=== PATIENT | male | born 2005 | race Caucasian/White ===

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

== ENCOUNTER 2024-02-14 14:47 | Emergency (ER) | payer MEDICAID, SELFPAY ==
--- NOTE | ~2024-02-14 | CT_ITS ---
EXAMINATION: CT ABDOMEN AND PELVIS WITHOUT CONTRAST CLINICAL INFORMATION: Pain. Vomiting. COMPARISON: 07/13/2023 TECHNIQUE: Multidetector volumetric imaging was performed from the superior aspect of the liver through the pubic symphysis. Sagittal and coronal reformatted images were obtained on the technologist's workstation. This CT examination was performed using dose optimization techniques as appropriate, variously including the following: *Automated exposure control *Adjustment of mA and/or kV according to patient size (this includes techniques or standardized protocols for targeted exams where dose is matched to indication/reason for exam; i.e. extremities or head) *Use of iterative reconstruction technique DLP: 582 mGy-cm FINDINGS: LUNG BASES: The visualized lung bases are unremarkable. LIVER, GALLBLADDER, AND BILIARY TREE: The liver is normal in size, shape, and attenuation. No focal hepatic lesion or biliary ductal dilatation is present. The gallbladder is unremarkable with no evidence of radiopaque gallstones, gallbladder wall thickening, or obvious pericholecystic inflammatory changes. PANCREAS: Unremarkable. SPLEEN: Unremarkable. ADRENAL GLANDS: Unremarkable. KIDNEYS AND URETERS: The kidneys are normal in size, shape, and attenuation. No hydronephrosis, hydroureter, or calculi seen. No perinephric stranding. BLADDER: Unremarkable. GASTROINTESTINAL TRACT: The small and large bowel are unremarkable. The appendix is unremarkable. ABDOMINAL WALL: No significant hernia is appreciated. LYMPH NODES: Normal. VASCULAR: Unremarkable. PELVIC VISCERA: Unremarkable. OSSEOUS STRUCTURES: Unremarkable. CT/CT abdomen pelvis wo IV con IMPRESSION: No significant abnormality. Fleischner guidelines were followed.
[2024-02-14 15:06] VITALS: BP 119/80; PULSE 83; RESP 16; TEMP 36.8; O2SAT 99; BMI 25.1
--- NOTE | 2024-02-14 15:21 | ED_ITS ---
HPI - General Adult General Chief complaint: Nausea/Vomiting/Diarrhea Stated complaint: Not Feeling Well Time Seen by Provider: 02/14/24 19:04 Source: patient and family Mode of arrival: ambulatory Limitations: no limitations History of Present Illness HPI narrative: 19-year-old male came in for evaluation nausea, vomiting, chills x2 days. Patient feels sore throat only after vomiting, no sick contacts, no recent travel , no recent prolonged immobilization. Patient is complaining of epigastric / mid pain pain is only after vomiting pain is not constant is about 5/10 when it presents. No history of intra-abdominal surgery. Related Data Previous Rx's ?Medication ?Instructions ?Recorded lorazepam 1 mg tablet (Ativan) 1 mg PO DAILY PRN anxiety, 10/03/20 vomiting #7 tabs ondansetron 4 mg disintegrating 4 mg PO Q6-8H PRN Vomiting #20 tabs 10/03/20 tablet ondansetron HCl 4 mg tablet 4 mg PO Q8H PRN nausea and 03/05/21 (Zofran) vomiting #10 tabs meclizine 25 mg tablet 25 mg PO TID PRN dizziness #20 tabs 09/30/22 ondansetron 4 mg disintegrating 4 mg PO Q6H PRN nausea and 09/30/22 tablet vomiting #15 tabs ondansetron 4 mg disintegrating 4 mg PO Q8H PRN nausea and 07/13/23 tablet vomiting #7 tabs omeprazole magnesium 20 mg 20 mg PO DAILY 30 days #30 tabs 07/15/23 tablet,delayed release (Prilosec OTC) promethazine 25 mg tablet 25 mg PO Q6H PRN nausea and 07/15/23 vomiting #14 tabs ondansetron 4 mg disintegrating 4 mg PO Q8H PRN nausea and 11/09/23 tablet vomiting 4 days #10 tabs azithromycin 250 mg tablet See Rx Instructions PO .COMPLEX #6 02/14/24 (Zithromax Z-Angel) tabs metoclopramide HCl 10 mg tablet 10 mg PO Q6H PRN nausea and 02/15/24 (Reglan) vomiting #20 tabs Allergies Allergy/AdvReac Type Severity Reaction Status Date / Time amoxicillin [AMOXICILLIN] Allergy Unknown RASH Verified 02/14/24 15:10 Review of Systems 2 Review of Systems: all other systems are reviewed and are negative Constitutional: Reports as per HPI and Reports no additional constitutional complaints Eyes: Reports as per HPI and Reports no additional eye complaints Reports system reviewed and no additional complaints, except as documented Cardiovascular: Reports as per HPI and Reports no additional cardiovascular complaints Respiratory: Reports as per HPI and Reports no additional respiratory complaints Gastrointestinal: Reports as per HPI and Reports no additional gastrointestinal complaints Genitourinary: Reports no additional female genitourinary complaints Musculoskeletal: Reports no additional musculoskeletal complaints Skin/Breast: Reports system reviewed and no additional complaints, except as docu Psychiatric: Reports no additional psychiatric complaints Endocrine: Reports no additional endocrine complaints Hematologic/Lymphatic: Reports no additional hematologic/lymphatic complaints Allergic/Immunologic: Reports no additional allergic/immunologic complaints Reports system reviewed and no additional complaints, except as documented and Reports Abnormal speech present [facility] Past Medical History Medical History No known health problems Social History Social History Alcohol intake: never Smoked in Last 30 Days: No Use of substances other than those prescribed or required for medical reasons: No Advance Directives: No Advance Directives Information Provided: No Do you have a plan to hurt others: No Plan Physical Exam ED Vital Signs: Vital Signs - 24 hr 02/14/24 15:06 02/14/24 19:53 02/14/24 21:01 Temperature 98.3 F 98.4 F 98.7 F Pulse Rate 83 82 Respiratory Rate 16 16 Blood Pressure 119/80 115/78 Pulse Oximetry 99 100 Oxygen Delivery Method Room Air Room Air 02/14/24 21:52 02/15/24 00:49 02/15/24 00:50 Temperature 98.3 F 98.6 F 98.6 F Pulse Rate 86 78 78 Respiratory Rate 19 16 16 Blood Pressure 110/65 120/75 120/75 Pulse Oximetry 100 100 100 Oxygen Delivery Method Room Air Room Air Room Air BMI result Body Mass Index 25.1 Vital signs have been reviewed and appear to be correct. Blood pressure elevated. Heart rate normal. Respiratory rate normal. Temperature normal. Oxygen saturation normal. Appearance: Alert. Oriented X3. No acute distress. Head: Normal external exam. Normocephalic. Atraumatic. No Chaparro signs noted. No raccoon eyes noted Eyes: PERRLA. EOMI. Conjunctiva and sclera normal. Eyelids normal. ENT: TM's Normal. Pharynx normal. Uvula midline. Moist mucous membranes. No trismus noted. No drooling noted. No muffled voice noted. Neck: Normal inspection. Neck supple. FROM. No adenopathy. Thyroid Normal. No meningeal signs. No neck mass noted. CVS: Normal heart rate and rhythm. Heart sound normal. No murmurs noted. Pulses normal throughout. Respiratory: No respiratory distress. Painless inspiration. Breath sounds normal. No wheezes/rales/rhonchi noted. Chest nontender. No accessory muscle usage noted or decreased air movement noted. Abdomen: Soft, mid abdominal tenderness with no rebound tenderness or guarding. Bowel sounds normal in all 4 quadrants. No distention noted. No organomegaly noted. No visible injury noted. Back: No CVA tenderness. Full range of motion noted. Skin: Skin warm and dry. Normal skin color. Normal skin turgor. No rashes/lesions/lacerations noted. Extremities: No lower extremity edema. Extremities exhibit normal range of motion. Extremities nontender. Neuro: Oriented X 3. Cranial nerve exam: II-XII are grossly intact No motor deficit. No sensory deficit. Reflexes normal. Course Course Course Narrative: RME: Triage by JUAN JOSÉ May. 19-year-old male presents to ED for nausea vomiting and diarrhea for a couple of saline and then having mild abdominal discomfort from vomiting. Patient states no chest pain or shortness of breath. Patient denies any coughing. Abdomen is benign. Negative for signs of peritonsillar abscess. Labs swabs ordered Reevaluation(s) Reevaluation #1: 19-year-old male with persistent vomiting, positive for strep pharyngitis patient is allergic to penicillin will start on Zithromax. Feels better with IV fluids and Pepcid with Zofran. Will start on Z-Angel. Time: 20:30 Reevaluation #2: patient started to vomit again in the ED, complaining of abdominal pain patient is positive for strep pharyngitis patient also with leukocytosis will consider CT abdomen pelvis rule out acute appendicitis, case was signed out to Dr. Puentes. Time: 20:59 Reevaluation #3: CT scan negative feels better tolerating PO stable for DC Medications Administered Discontinued Medications Generic Name Dose Route Start Last Admin Trade Name Jrq PRN Reason Stop Dose Admin Al Hydroxide/Mg Hydroxide 30 ml 02/14/24 19:14 02/14/24 19:25 Magnesium Hydrox/Alum Hydrox 30 Ml Oral.Susp PO 02/14/24 19:15 30 ml ONCE ONE Administration Azithromycin 500 mg 02/14/24 19:15 02/14/24 19:26 Azithromycin 500 Mg Tablet PO 02/14/24 19:16 500 mg ONCE ONE Administration Diphenhydramine HCl 25 mg 02/14/24 21:57 02/14/24 22:32 Diphenhydramine Hcl 50 Mg/Ml Vial IVPUSH 02/14/24 21:58 25 mg ONCE ONE Administration Famotidine 20 mg 02/14/24 19:14 02/14/24 19:26 Famotidine/Pf 20 Mg/2 Ml Vial IVPUSH 02/14/24 19:15 20 mg ONCE ONE Administration Sodium Chloride 1,000 mls @ 999 mls/hr 02/14/24 19:14 02/14/24 20:24 Ns IV 02/14/24 20:14 Infused .Q1H1M ONE Infusion Sodium Chloride 1,000 mls @ 999 mls/hr 02/14/24 20:58 02/14/24 22:00 Ns IV 02/14/24 21:58 Infused .Q1H1M ONE Infusion Sodium Chloride 1,000 mls @ 999 mls/hr 02/14/24 21:57 02/15/24 00:42 Ns IV 02/14/24 22:57 Infused .Q1H1M ONE Infusion Metoclopramide HCl 10 mg 02/14/24 21:57 02/14/24 22:32 Metoclopramide Hcl 10 Mg/2 Ml Vial IVPUSH 02/14/24 21:58 10 mg ONCE ONE Administration Ondansetron HCl 4 mg 02/14/24 19:14 02/14/24 19:25 Ondansetron Hcl 4 Mg/2 Ml Vial IVPUSH 02/14/24 19:15 4 mg ONCE ONE Administration Ondansetron HCl 4 mg 02/14/24 20:42 02/14/24 21:01 Ondansetron Hcl 4 Mg/2 Ml Vial IVPUSH 02/14/24 20:43 4 mg ONCE ONE Administration Medical Decision Making Differential Diagnosis Differential Diagnoses: The differential diagnosis associated with the presentation includes ( Acute gastritis, pancreatitis, gallbladder disease, dehydration, electrolyte derangement, severe anemia, upper respiratory viral infection, strep pharyngitis.) Admission/Observation Consideration of admission/observation: Escalation of care including admission/observation considered Lab Data MDM Lab Attestation statement: I reviewed the patient's lab results. 02/14/24 15:59 02/14/24 15:59 Labs: Lab Results 02/14/24 02/14/24 Range/Units 15:59 16:00 WBC 13.3 H (4.8-10.8) X10*3/uL RBC 5.86 H (4.60-5.80) X10*6/uL Hgb 15.6 (14.0-18.0) g/dl Hct 46.1 (42.0-52.0) % MCV 78.7 L (80.0-98.0) fL MCH 26.6 L (27.0-33.0) pg MCHC 33.8 (31.0-36.0) g/dl RDW 13.9 (11.0-16.0) % Plt Count 216 (160-400) X10*3/uL MPV 11.3 (9.4-12.4) fL Immature Gran % (Auto) 0.5 H (0.0-0.4) % Neut % (Auto) 82.7 H (45-73) % Lymph % (Auto) 6.8 L (20-40) % [place] % (Auto) 9.6 (2-11) % Eos % (Auto) 0.2 (0-4) % Baso % (Auto) 0.2 (0-2) % Lymph # (Auto) 0.9 L (1.2-4.9) X10*3/uL [place] # (Auto) 1.3 H (0.1-1.2) X10*3/uL Eos # (Auto) 0.0 (0.0-0.4) X10*3/uL Baso # (Auto) 0.0 (0.0-0.2) X10*3/uL Abs Immat Gran (auto) 0.07 H (0.00-0.03) X10*3/uL Absolute Neuts (auto) 11.0 H (2.0-8.3) x10*3/uL Absolute Nucleated RBC 0.000 (0.0-0.012) X10*3/uL Nucleated RBC % (auto) 0.0 (0.0-0.2) /100WBC Sodium 139 (135-145) mmol/L Potassium 3.8 (3.3-5.1) mmol/L Chloride 104 (96-108) mmol/L Carbon Dioxide 26 (22-29) mmol/L Anion Gap 13 (12-20) BUN 13 (9-16) mg/dL Creatinine 1.16 (0.5-1.4) mg/dL Estim Creat Clear Calc 104.8 Estimated GFR > 60 Random Glucose 106 (60-115) mg/dL Calcium 9.1 (8.4-10.2) mg/dL Total Bilirubin 1.1 H (0.0-1.0) mg/dL AST 19 (5-37) U/L ALT 18 (0-40) U/L Alkaline Phosphatase 88 (39-117) U/L Total Protein 6.4 L (6.5-8.0) g/dL Albumin 3.7 (3.5-5.0) g/dL Lipase 15 (8-78) U/L Influenza Type A (PCR) NEGATIVE (Negative) Influenza Type B (PCR) NEGATIVE (Negative) RSV RNA Qual (PCR) NEGATIVE (Negative) SARS-CoV-2 RNA (RT-PCR) NEGATIVE (Negative) S. pyogenes GrpA BELA Positive A (Negative) Discharge Plan Discharge Clinical Impression: Acute streptococcal pharyngitis, Gastroenteritis Patient Disposition: Home, Self-Care Instructions: Strep Throat (ED), Gastroenteritis (ED) Additional Instructions: stay hydrated, return for any worsening symptoms or concerns CT scan negative labs reassuring other than strep positive finish antibiotics Prescriptions: New azithromycin [Zithromax Z-Angel] 250 mg tablet See Rx Instructions .ROUTE .COMPLEX Qty: 6 0RF Rx Instructions: For 250 mg dose pack: take 500 mg today (day 1), then 250 mg for 4 days (days 2-5) metoclopramide HCl [Reglan] 10 mg tablet 10 mg PO Q6H PRN (Reason: nausea and vomiting) Qty: 20 0RF No Action ondansetron HCl [Zofran] 4 mg tablet 4 mg PO Q8H PRN (Reason: nausea and vomiting) Qty: 10 0RF ondansetron 4 mg tablet,disintegrating 4 mg PO Q6-8H PRN (Reason: Vomiting) Qty: 20 0RF lorazepam [Ativan] 1 mg tablet 1 mg PO DAILY PRN (Reason: anxiety, vomiting) Qty: 7 0RF meclizine 25 mg tablet 25 mg PO TID PRN (Reason: dizziness) Qty: 20 0RF ondansetron 4 mg tablet,disintegrating 4 mg PO Q6H PRN (Reason: nausea and vomiting) Qty: 15 0RF promethazine 25 mg tablet 25 mg PO Q6H PRN (Reason: nausea and vomiting) Qty: 14 0RF omeprazole magnesium [Prilosec OTC] 20 mg tablet,delayed release (DR/EC) 20 mg PO DAILY 30 Days Qty: 30 0RF ondansetron 4 mg tablet,disintegrating 4 mg PO Q8H PRN (Reason: nausea and vomiting) Qty: 7 0RF ondansetron 4 mg tablet,disintegrating 4 mg PO Q8H PRN (Reason: nausea and vomiting) 4 Days Qty: 10 0RF Stand Alone Forms: Work/School Release Interventions: ED Discharge Assessment Last Done: 02/15/24 00:50 Discharge Date/Time: 02/15/24 00:50 Print Language: Hong Konger
[2024-02-14 16:05] LABS: MANUAL DIFF FLAG NO
[2024-02-14 16:13] LABS: IDNOW Serial# 08D9AD1C; Strep A Nucleic Acid Positive (Negative)
[2024-02-14 16:14] LABS: Basophils Percent Auto 0.2 % (0-2); Eosinophils Percent Auto 0.2 % (0-4); Hematocrit 46.1 % (42.0-52.0); Hemoglobin 15.6 g/dl (14.0-18.0); Imm Gran Abs Auto 0.07 X10*3/uL (0.00-0.03); Imm Gran Pct Auto 0.5 % (0.0-0.4); Lymphocytes Absolute Auto 0.9 X10*3/uL (1.2-4.9); Lymphocytes Percent Auto 6.8 % (20-40); Mean Corpuscular HGB Conc 33.8 g/dl (31.0-36.0); Mean Corpuscular Hemoglobin 26.6 pg (27.0-33.0); Mean Corpuscular Volume 78.7 fL (80.0-98.0); Mean Platelet Volume 11.3 fL (9.4-12.4); Monocytes Absolute Auto 1.3 X10*3/uL (0.1-1.2); Monocytes Percent Auto 9.6 % (2-11); Neutrophils Percent Auto 82.7 % (45-73); Platelet Count 216 X10*3/uL (160-400); Red Blood Count 5.86 X10*6/uL (4.60-5.80); Red Cell Distribution Width 13.9 % (11.0-16.0); White Blood Count 13.3 X10*3/uL (4.8-10.8)
[2024-02-14 16:37] LABS: Alanine Aminotransferase 18 U/L (0-40); Albumin Level 3.7 g/dL (3.5-5.0); Alkaline Phosphatase 88 U/L (39-117); Anion Gap 13 (12-20); Aspartate Amino Transferase 19 U/L (5-37); Bilirubin Total 1.1 mg/dL (0.0-1.0); Blood Urea Nitrogen 13 mg/dL (9-16); Calcium 9.1 mg/dL (8.4-10.2); Carbon Dioxide 26 mmol/L (22-29); Chloride 104 mmol/L (96-108); Creatinine Clr Calc Pharmacy 104.8; Estimated Glomerular Filt Rate > 60; Glucose Random 106 mg/dL (60-115); Lipase 15 U/L (8-78); Potassium 3.8 mmol/L (3.3-5.1); Sodium 139 mmol/L (135-145); Total Protein 6.4 g/dL (6.5-8.0)
[2024-02-14 16:45] LABS: Influenza A PCR NEGATIVE (Negative); Influenza B PCR NEGATIVE (Negative); Resp Syncy Virus RNA Qual PCR NEGATIVE (Negative); SARS COV2 PCR INHOUSE NEGATIVE (Negative)
[2024-02-14] MEDS: Magnesium Hydrox/Alum Hydrox 30 ML ORAL.SUSP PO (19:25)
[2024-02-14] MEDS: ondansetron HCL 4 MG/2 ML VIAL IVPUSH ×2 (19:25→21:01)
[2024-02-14] MEDS: 0.9 % Sodium Chloride 1,000 ML 999 ML IV ×3 (19:25→22:32)
[2024-02-14] MEDS: Azithromycin 500 MG TABLET PO (19:26)
[2024-02-14] MEDS: Famotidine/PF 20 MG/2 ML VIAL IVPUSH (19:26)
[2024-02-14 19:53] VITALS: BP 115/78; PULSE 82; RESP 16; TEMP 36.9; O2SAT 100
--- NOTE | 2024-02-14 19:55 | PC.NURSE ---
pt medicated per mar.
[2024-02-14 21:01] VITALS: TEMP 37.1
[2024-02-14 21:52] VITALS: BP 110/65; PULSE 86; RESP 19; TEMP 36.8; O2SAT 100
[2024-02-14] MEDS: Metoclopramide HCl 10 MG/2 ML VIAL IVPUSH (22:32)
[2024-02-14] MEDS: diphenhydrAMINE HCL 50 MG/ML VIAL 25 MG IVPUSH (22:32)
[2024-02-15 00:49] VITALS: BP 120/75; PULSE 78; RESP 16; TEMP 37; O2SAT 100
[2024-02-15 00:50] VITALS: BP 120/75; PULSE 78; RESP 16; TEMP 37; O2SAT 100
== END 2024-02-15 00:50 | disposition home or self-care (01) ==
PROVIDERS: Emergency Medicine; Physician Assistant; Emergency Provider Emergency Medicine
DX: J02.0 Streptococcal pharyngitis (principal); K52.89 Other specified noninfective gastroenteritis and colitis; R11.2 Nausea with vomiting, unspecified; R68.83 Chills (without fever); R06.02 Shortness of breath; Z03.818 Encounter for observation for suspected exposure to other biological agents ruled out; Z79.899 Other long term (current) drug therapy
CPT/HCPCS: 0241U; 36415; 74176; 80053; 83690; 85025; 87651; 96361; 96374; 96375; 96376; 99284; 99285; J1200; J2405; J2765

== ENCOUNTER 2025-03-15 11:43 | Outpatient (REF) | payer MEDICAID, SELFPAY ==
[2025-03-15 13:18] LABS: Hematocrit 46.6 % (42.0-52.0); Hemoglobin 14.9 g/dl (14.0-18.0); Mean Corpuscular Volume 81.3 fL (80.0-98.0); Mean Platelet Volume 12.9 fL (9.4-12.4); Platelet Count 201 X10*3/uL (160-400); Red Blood Count 5.73 X10*6/uL (4.60-5.80); Red Cell Distribution Width 14.3 % (11.0-16.0); White Blood Count 5.6 X10*3/uL (4.8-10.8)
[2025-03-15 13:26] LABS: Estimated Average Glucose 103 mg/dL; Hemoglobin A1c % 5.2 % (<6.0)
[2025-03-15 13:47] LABS: Alanine Aminotransferase 31 U/L (0-40); Alkaline Phosphatase 93 U/L (39-117); Anion Gap 10 (12-20); Aspartate Amino Transferase 22 U/L (5-37); Bilirubin Total 0.7 mg/dL (0.0-1.0); Blood Urea Nitrogen 17 mg/dL (9-16); Calcium 9.3 mg/dL (8.4-10.2); Carbon Dioxide 29 mmol/L (22-29); Chloride 107 mmol/L (96-108); Estimated Glomerular Filt Rate > 60; Glucose Random 80 mg/dL (60-115); Potassium 3.8 mmol/L (3.3-5.1); Sodium 142 mmol/L (135-145); TSH reflex Free T4 0.92 uIU/mL (0.32-4.0); Total Protein 6.2 g/dL (6.5-8.0)
[2025-03-15 14:30] LABS: CT PCR NOT DETECTED (Not Detect.); NG PCR NOT DETECTED (Not Detect.)
[2025-03-18 04:06] LABS: Syphilis Screen Nonreactive (Nonreactive)
[2025-03-18 04:17] LABS: HBS Num1 0.43 mIU/mL (0-7.99); HBc Num1 0.04 S/CO (0.00-0.79); HIV AB/AG Nonreactive (Nonreactive); HIV Num 1 0.06 S/CO (0.00-0.99); Hepatitis B Core Antibody Nonreactive (Nonreactive); Hepatitis B Surface Antigen Negative (Negative); ~HepC Num1 0.09 S/CO (0.00-0.79); ~Hepatitis B Surface Antibody NONREACTIVE (Nonreactive); ~Hepatitis C Antibody Nonreactive (Nonreactive)
== END 2025-03-15 11:44 | disposition home or self-care (01) ==
LOC: HO.HHCL 11:43
PROVIDERS: Visit Provider Student in an Organized Health Care Education/Training Program
DX: Z00.00 Encounter for general adult medical examination without abnormal findings (principal); Z13.0 Encounter for screening for diseases of the blood and blood-forming organs and certain disorders involving the immune mechanism; Z11.3 Encounter for screening for infections with a predominantly sexual mode of transmission; Z13.1 Encounter for screening for diabetes mellitus; Z11.59 Encounter for screening for other viral diseases; Z13.29 Encounter for screening for other suspected endocrine disorder
CPT/HCPCS: 80053; 83036; 84443; 85027; 86704; 86706; 86780; 86803; 87340; 87389; 87491; 87591